=== PATIENT | female | born 1990 | race Hispanic/Latino ===

== ENCOUNTER 2017-09-24 19:15 | Emergency (ER) | payer SELFPAY ==
[2017-09-24 19:20] VITALS: BP 119/65; PULSE 78; RESP 16; TEMP 98.9; O2SAT 100
[2017-09-24] MEDS ORDERED: Sodium Chloride 0.9% 1,000 ML IV STA (20:27)
--- NOTE | 2017-09-24 20:50 | ED PDOC ---
HPI: Female Pain Time Seen by Provider: 09/24/17 20:30 Chief Complaint (Nursing): Abdominal Pain Chief Complaint (Provider): Vaginal bleeding History Per: Patient History/Exam Limitations: no limitations Onset/Duration Of Symptoms: Days (1) Additional Complaint(s): Patient is a 26 y/o female with a past medical history of a prior miscarriage presenting to the emergency department for one day of vaginal spotting. Of note , patient is approximately five weeks . Reports that the spotting became heavier and developed into brownish-reddish blood. Denies seeing a legal stenographer, denies vaginal pain, abdominal cramping or pain, vomiting, diarrhea, or other complaints. PCP: none provided. : 2 Para: 0 Miscarriage: 1 Past Medical History Reviewed: Historical Data, Nursing Documentation, Vital Signs Vital Signs: Last Vital Signs Temp 98.9 F 09/24/17 19:17 Pulse 78 09/24/17 19:17 Resp 16 09/24/17 19:17 BP 119/65 09/24/17 19:17 Pulse Ox 100 09/24/17 19:17 - Medical History PMH: No Chronic Diseases Denies: Chronic Kidney Disease - Surgical History Surgical History: No Surg Hx - Social History Current smoker - smoking cessation education provided: Yes Alcohol: Social Drugs: Denies - Immunization History Hx Tetanus Toxoid Vaccination: No Hx Influenza Vaccination: No Hx Pneumococcal Vaccination: No - Home Medications Home Medications: Ambulatory Orders Medication Instructions Recorded Nitrofurantoin 100 mg PO BID 05/14/15 - Allergies Allergies/Adverse Reactions: Allergies Allergy/AdvReac Type Severity Reaction Status Date / Time No Known Allergies Allergy Verified 09/24/17 19:17 Review of Systems ROS Statement: Except As Marked, All Systems Reviewed And Found Negative Gastrointestinal: Negative for: Vomiting, Abdominal Pain (or cramps), Diarrhea Genitourinary Female: Positive for: Vaginal Bleeding (vaginal spotting) Physical Exam - Reviewed Nursing Documentation Reviewed: Yes Vital Signs Reviewed: Yes - Physical Exam Appears: Positive for: Well, Non-toxic, No Acute Distress Head Exam: Positive for: ATRAUMATIC, NORMAL INSPECTION, NORMOCEPHALIC Skin: Positive for: Normal Color, Warm, Dry Eye Exam: Positive for: Normal appearance Neck: Positive for: Normal Cardiovascular/Chest: Positive for: Regular Rate, Rhythm. Negative for: Murmur Respiratory: Positive for: Normal Breath Sounds. Negative for: Accessory Muscle Use, Respiratory Distress Gastrointestinal/Abdominal: Positive for: Normal Exam, Soft. Negative for: Tenderness Pelvic Exam: Positive for: No Cerv. Motion Tender, Blood (at cervical os, appears to be open. dark red blood noted.) Extremity: Positive for: Normal ROM Neurologic/Psych: Positive for: Alert, Oriented (x3) Comments: Pelvic exam airline ticket agent: ARISTIDES Graham - Laboratory Results Result Diagrams: 09/24/17 20:45 09/24/17 20:45 - ECG O2 Sat by Pulse Oximetry: 100 (RA) Pulse Ox Interpretation: Normal Medical Decision Making Medical Decision Making: Time: 20:22 Initial impression: Vaginal bleeding r/o ectopic and subchorionic hemorrhage Initial plan: ABO/RH Type Beta-HCG Quantitative CMP, CBC Normal Saline 1 L IV Urine C&S Urinalysis OB 1st Trimester Reevaluation 20:25 Ultrasound reviewed. Findings noted as follows: FINDINGS: The LMP is reported to be: 08/17/17 If the menstrual history is accurate, the current expected age = 5 weeks 3 days. No IUP is seen. The uterus is 'empty'. No intrauterine gestational sac and no pole are identified. The uterus is anteverted, measuring 7.0 x 3.3 x 4.4 cm in dimensions. The endometrium is thin (3 mm thickness). The cervix is closed, measuring 3.2 cm in length. The maternal right ovary measures 3.1 x 2.3 x 3.5 cm in dimensions. The left ovary measures 3.0 x 2.2 x 2.4 cm in dimensions. Follicles are present in each ovary. There is no evidence of torsion on Doppler evaluation. No free pelvic fluid is appreciated. No solid adnexal masses are noted. IMPRESSION: No IUP is seen. The uterus is 'empty'. No intrauterine gestational sac and no pole are identified. The endometrium is thin (3 mm thickness). The ovaries are unremarkable. If indeed the patient is , the differential diagnosis includes: early intrauterine ; missed ; failed early ; nonvisualized ectopic . Clinical and quantitative hCG correlation are needed. A follow-up sonogram in 6-10 days can be obtained to assess for development and heartbeat, if felt appropriate. In the appropriate clinical setting, an ectopic cannot be excluded. 20:30 Patient is stable for discharge. Patient will follow up with her legal stenographer in two days. Clinical impression: miscarriage Scribe Attestation: Documented by Kirstie Mccollum, acting as a scribe for Kendy Hill MD. Provider Scribe Attestation: All medical record entries made by the Scribe were at my direction and personally dictated by me. I have reviewed the chart and agree that the record accurately reflects my personal performance of the history, physical exam, medical decision making, and the department course for this patient. I have also personally directed, reviewed, and agree with the discharge instructions and disposition. Disposition - Clinical Impression Clinical Impression: Miscarriage - Disposition Condition: STABLE Additional Instructions: follow up with your legal stenographer in 1-2 days return to the ED with any worsening or concerning symptoms Instructions: Spontaneous Miscarriage (ED) Forms: [facility] (Kiswahili)
[2017-09-24 21:09] LABS: BASO # 0.1 K/uL (0.0-0.2); BASO % 1.2 % (0.0-2.0); EOS # 0.4 K/uL (0.0-0.7); EOS % 5.1 % (0.0-4.0); HEMATOCRIT 41.4 % (34.0-47.0); LYMPH # 2.7 K/uL (1.0-4.3); LYMPH % 33.1 % (20.0-40.0); MEAN CELL VOLUME 90.3 fl (81.0-99.0); MEAN CORPUSCULAR HEMOGLOBIN 29.5 pg (27.0-31.0); MEAN CORPUSCULAR HGB CONC 32.6 g/dL (33.0-37.0); MEAN PLATELET VOLUME 9.3 fl (7.2-11.7); MONO # 0.5 K/uL (0.0-0.8); MONO % 5.9 % (0.0-10.0); NEUT # 4.5 K/uL (1.8-7.0); NEUT % 54.7 % (50.0-75.0); NRBC % 0.1 % (0.0-0.0); RED CELL DISTRIBUTION WIDTH 13.5 % (11.5-14.5); WHITE BLOOD COUNT 8.3 K/uL (4.8-10.8)
[2017-09-24 21:23] LABS: ALKALINE PHOSPHATASE 71 U/L (38-126); ALT/SGPT 26 U/L (9-52); AST/SGOT 30 U/L (14-36); BILIRUBIN,TOTAL 0.7 mg/dl (0.2-1.3); BLOOD UREA NITROGEN 12 mg/dl (7-17); CALCIUM 9.8 mg/dL (8.4-10.2); CARBON DIOXIDE 25 mmol/L (22-30); CHLORIDE 106 mmol/L (98-107); GFR AFRICAN-AMERICAN > 60; GLUCOSE,RANDOM 81 mg/dL (65-105); POTASSIUM 3.8 MMOL/L (3.6-5.0); SODIUM 142 mmol/l (132-148); TOTAL PROTEIN 8.3 G/DL (6.3-8.2)
[2017-09-24 21:33] LABS: RBC URINE 7 /hpf (0-3); URINE BILIRUBIN NEGATIVE (NEGATIVE); URINE BLOOD MODERATE (NEGATIVE); URINE COLOR YELLOW (YELLOW); URINE GLUCOSE (UA) NEG (Normal); URINE KETONE NEGATIVE (NEGATIVE); URINE LEUKOCYTE ESTERASE NEG Leu/uL (Negative); URINE PROTEIN 30 mg/dL (NEGATIVE); WBC URINE 1 /hpf (0-5)
[2017-09-24 21:51] LABS: ALB/GLOB RATIO 1.5 (1.0-2.1)
--- NOTE | 2017-09-25 15:04 | US ---
PROCEDURE: OB Pelvic Ultrasound HISTORY: vag bleeding COMPARISON: Transabdominal and transvaginal pelvic ultrasound was performed with longitudinal and transverse images submitted for interpretation. No prior comparison available. FINDINGS: UTERUS: Gestational sac: No decidual sac is identified with the endometrial cavity appear unremarkable. The endometrium measures 3.0 mm and is homogeneous in echotexture. Uterus measures 7.0 x 3.3 x 4.4 cm. Normal in size and appearance. Uterus appears anteverted without disc definite myometrial mass appreciable. CERVIX: Long and closed. No cervical abnormality seen. Cervical length measures 3.2 cm. RIGHT OVARY: Measures 3.1 x 2.3 x 2.5 cm. No mass lesion. Normal flow. LEFT OVARY: Measures 3.0 x 2.2 x 2.4 cm. No solid mass. Normal flow. FREE FLUID: None. OTHER FINDINGS: None. IMPRESSION: No gestational sac is identified within and endometrial cavity and there is no definite pattern to suggest an ectopic gestation at this time. Consider potential early, nonvisualized intrauterine gestation, nevertheless, a follow ultrasonography is advised transvaginally, in 6-10 days as well as serial serum beta HCG analysis. Concordant preliminary report from [facility], 09/24/2017.
== END 2017-09-24 23:03 | disposition home or self-care (01) ==
LOC: H.ER 19:15
DX: O03.9 Complete or unspecified spontaneous abortion without complication (principal); O99.331 Smoking (tobacco) complicating pregnancy, first trimester; Z3A.01 Less than 8 weeks gestation of pregnancy
CPT/HCPCS: 76815; 76817; 80053; 81003; 81025; 84702; 85025; 86900; 87086; 99283; J7040

== ENCOUNTER 2018-08-21 19:38 | Emergency (ER) | payer SELFPAY ==
[2018-08-21 20:06] VITALS: RESP 16; TEMP 98.5
--- NOTE | 2018-08-21 21:04 | ED PDOC ---
Lower Extremity Pain/Injury Time Seen by Provider: 08/21/18 20:21 Chief Complaint (Nursing): Lower Extremity Problem/Injury Chief Complaint (Provider): Left foot pain, swelling History Per: Patient History/Exam Limitations: no limitations Onset/Duration Of Symptoms: Days Current Symptoms Are (Timing): Still Present Severity: Moderate Pain Scale Rating Of: 7 Additional Complaint(s): 27 yo female with no medication problems presents for evaluation of left foot pain and swelling. PT states she was at work when she began to feel dull pain. PT states within an hour she had increased pain and swelling of the left foot. No trauma. Pt has been working at her current place of employment for 4 months and has been wearing the same shoes. PT is a smoker and reports taking OCP. Past Medical History Reviewed: Historical Data, Nursing Documentation, Vital Signs Vital Signs: Last Vital Signs Temp 98.5 F 08/21/18 20:03 Pulse 83 08/21/18 20:03 Resp 16 08/21/18 20:03 BP 119/54 L 08/21/18 20:03 Pulse Ox 98 08/21/18 20:03 - Medical History PMH: No Chronic Diseases Denies: Chronic Kidney Disease - Surgical History Surgical History: No Surg Hx - Family History Family History: States: Unknown Family Hx - Living Arrangements Living Arrangements: With Family - Social History Current smoker - smoking cessation education provided: Yes Alcohol: Occasional Drugs: Denies - Immunization History Hx Tetanus Toxoid Vaccination: No Hx Influenza Vaccination: No Hx Pneumococcal Vaccination: No - Home Medications Home Medications: Ambulatory Orders Medication Instructions Recorded RX: Nitrofurantoin 100 mg PO BID 05/14/15 Ibuprofen [Motrin Tab] 800 mg PO Q6H PRN #20 tab 08/21/18 - Allergies Allergies/Adverse Reactions: Allergies Allergy/AdvReac Type Severity Reaction Status Date / Time No Known Allergies Allergy Verified 08/21/18 20:03 Review of Systems ROS Statement: Except As Marked, All Systems Reviewed And Found Negative Constitutional: Negative for: Fever, Chills Musculoskeletal: Positive for: Foot Pain Skin: Positive for: Other Physical Exam - Reviewed Nursing Documentation Reviewed: Yes Vital Signs Reviewed: Yes - Physical Exam Appears: Positive for: Well, Non-toxic, No Acute Distress Head Exam: Positive for: ATRAUMATIC, NORMAL INSPECTION, NORMOCEPHALIC Skin: Positive for: Normal Color, Warm, DRY Eye Exam: Positive for: Normal appearance ENT: Positive for: Normal ENT Inspection Neck: Positive for: Normal Cardiovascular/Chest: Negative for: Bradycardia, Tachycardia Respiratory: Negative for: Accessory Muscle Use, Respiratory Distress Back: Positive for: Normal Inspection Extremity: Positive for: Normal ROM, Tenderness ((+) left dorsal foot, foot swelling), Swelling. Negative for: Deformity Neurologic/Psych: Positive for: Alert, Oriented - ECG O2 Sat by Pulse Oximetry: 98 (RA) Pulse Ox Interpretation: Normal Medical Decision Making Medical Decision Making: Time: 2041 Initial Plan: --US duplex lower extremity vein left --X-ray foot left XR without acute findings US without evidence of DVT. Scribe Attestation: Documented by Morris Childs, acting as a scribe for Jocelin Gordon PA-C Provider Scribe Attestation: All medical record entries made by the Scribe were at my direction and personally dictated by me. I have reviewed the chart and agree that the record accurately reflects my personal performance of the history, physical exam, medical decision making, and the department course for this patient. I have also personally directed, reviewed, and agree with the discharge instructions and disposition. Disposition - Clinical Impression Clinical Impression: Foot pain - Patient ED Disposition Is Patient to be Admitted: No Counseled Patient/Family Regarding: Diagnosis, Need For Followup, Rx Given - Disposition Referrals: Deo Hernandez MD [Staff Provider] - Disposition: Routine/Home Disposition Time: 23:44 Condition: STABLE Prescriptions: Ibuprofen [Motrin Tab] 800 mg PO Q6H PRN #20 tab PRN Reason: Pain Instructions: Foot Sprain (DC) Forms: [employer] (Sudanese), [facility] ED School/Work Excuse
--- NOTE | 2018-08-21 22:21 | RAD ---
Date of service: 08/21/2018 PROCEDURE: Left Foot Radiographs. HISTORY: foot pain, no trauma COMPARISON: None. FINDINGS: BONES: Normal. No fracture. JOINTS: Normal. SOFT TISSUES: Normal. OTHER FINDINGS: None. IMPRESSION: Normal left foot radiographs.
[2018-08-21 23:54] VITALS: BP 113/74; PULSE 71
[2018-08-22 18:50] VITALS: O2SAT 98
--- NOTE | 2018-08-23 14:17 | US ---
Date of service: 08/21/2018 HISTORY: foot swelling, smoker, OCP. PRIORS: None. FINDINGS: 2-D, color and duplex Doppler analysis of the lower extremity venous circulation using routine protocol from the femoral veins through the popliteal veins. Venous compressibility: Normal. Flow and augmentation patterns: Normal. Visualized veins upper third of calf: Normal. Pelayo cyst: None. IMPRESSION: No sonographic or Doppler evidence for DVT in left lower extremity. Preliminary report with concordant findings was submitted to the referring physician by [facility] radiology
== END 2018-08-21 23:54 | disposition home or self-care (01) ==
LOC: H.ER 19:38
DX: M79.672 Pain in left foot (principal); F17.200 Nicotine dependence, unspecified, uncomplicated